=== PATIENT | female | born 2005 | race Caucasian/White ===

== ENCOUNTER 2023-10-24 18:55 | Inpatient (IN) | payer OTHER ==
[2023-10-24 20:12] VITALS: BMI 30.4
[2023-10-24 20:13] LABS: BASO % 0.3 % (0-2.0); HEMOGLOBIN 11.2 GM/dL (10.7-15.3); LYMPH % 16.8 % (8-40); MCH 32.1 pg (25.7-33.7); MCHC 34.9 g/dl (32.0-36.0); MEAN PLT VOLUME 8.2 fl (7.5-11.1); MONO % 7.1 % (3.8-10.2); NEUT % 74.8 % (42.8-82.8); PLATELET COUNT 220 10^3/uL (134-434); RBC 3.48 M/mm3 (3.60-5.2); RDW 14.5 % (11.6-15.6); WHITE BLOOD COUNT 10.9 K/mm3 (4.0-10.0)
[2023-10-24 20:21] LABS: INR 0.85 (0.83-1.09); PROTHROMBIN TIME (PATIENT) 9.6 SEC (9.7-13.0)
[2023-10-24 20:24] LABS: ACTIVATED PTT 27.6 SECONDS (25.2-36.5)
[2023-10-24 20:32] LABS: CALCIUM 8.6 mg/dL (8.5-10.1)
[2023-10-24 20:33] LABS: BLOOD UREA NITROGEN 11.5 mg/dL (7-18)
[2023-10-24 20:36] LABS: CREATININE 0.5 mg/dL (0.55-1.3)
[2023-10-24] MEDS: DINOPROSTONE 10 MG VAGINAL SUPPOSITORY VG ONE (20:50)
[2023-10-24] MEDS: ELECTROLYTE-148 SOLN 1,000 ML IV SCH (21:30)
[2023-10-24] MEDS: CITRIC ACID/SODIUM CITRATE 30 ML UNIT-DOSE CUP PO ONE (22:15)
[2023-10-24] MEDS ORDERED: ZOLPIDEM TARTRATE 5 MG TABLET ONE (23:48)
[2023-10-24] MEDS: ZOLPIDEM TARTRATE 5 MG TABLET PO ONE (23:50)
[2023-10-25] MEDS: ELECTROLYTE-148 SOLN 1,000 ML IV SCH
[2023-10-25] MEDS ORDERED: BUTORPHANOL TARTRATE 1 MG/ML VIAL ONE ×2 (03:45→15:51)
[2023-10-25] MEDS ORDERED: PROMETHAZINE HCL 25 MG/1 ML VIAL ONE ×2 (03:46→15:51)
[2023-10-25] MEDS: BUTORPHANOL TARTRATE 1 MG/ML VIAL IVPB ONE (03:50)
[2023-10-25] MEDS: PROMETHAZINE HCL 25 MG/1 ML VIAL IVPB ONE (03:50)
[2023-10-25] MEDS: DINOPROSTONE 10 MG VAGINAL SUPPOSITORY VG ONE (07:02)
[2023-10-25 07:57] LABS: HEPATITIS B SURFACE AG MATERN NON-REACTIVE (NONREACTIVE)
[2023-10-25 08:24] LABS: HIV INTERPRETATION NEGATIVE (NEGATIVE)
[2023-10-25] MEDS ORDERED: ZOLPIDEM TARTRATE 5 MG TABLET ONE (22:59)
[2023-10-25] MEDS: ZOLPIDEM TARTRATE 5 MG TABLET PO PRN (23:00)
[2023-10-26] MEDS ORDERED: OXYTOCIN 30 UNITS in 0.9% NS 30 UNIT/500 ML INFUS.BAG IVPB ONE (03:34)
[2023-10-26] MEDS: OXYTOCIN 30 UNITS in 0.9% NS 30 UNIT/500 ML INFUS.BAG IVPB SCH (04:00)
[2023-10-26 06:47] VITALS: RESP 18
[2023-10-26] MEDS ORDERED: BUTORPHANOL TARTRATE 2 MG/ML VIAL ONE (09:08)
[2023-10-26] MEDS ORDERED: PROMETHAZINE HCL 25 MG/1 ML VIAL ONE (09:08)
[2023-10-26] MEDS: PROMETHAZINE HCL 25 MG/1 ML VIAL IVPB ONE (09:45)
[2023-10-26] MEDS: BUTORPHANOL TARTRATE 1 MG/ML VIAL IVPB ONE (09:45)
[2023-10-26] MEDS ORDERED: FENTANYL/BUPIVACAINE/NS/PF - PCEA - 50 ML DISP.SYRIN EP ONE (12:05)
[2023-10-26] MEDS ORDERED: NALOXONE HCL 0.4 MG/ML VIAL IVPUSH PRN (12:06)
[2023-10-26] MEDS: FENTANYL/BUPIVACAINE/NS/PF - PCEA - 50 ML DISP.SYRIN EP SCH (12:30)
[2023-10-26] MEDS ORDERED: OXYTOCIN 20 UNITS in 0.9% NS 20 UNIT/1,000 ML INFUS.BAG IV ONE (15:31)
[2023-10-26] MEDS: OXYTOCIN 20 UNITS in 0.9% NS 20 UNIT/1,000 ML INFUS.BAG IV SCH (17:10)
[2023-10-26] MEDS ORDERED: MISOPROSTOL 200 MCG TABLET ONE (17:12)
[2023-10-26] MEDS: MISOPROSTOL 200 MCG TABLET PO SCH (17:15)
[2023-10-26] MEDS: CARBOPROST TROMETHAMINE 250 MCG/ML AMPUL IM ONE (17:23)
[2023-10-26] MEDS ORDERED: SIMETHICONE 80 MG TAB.CHEW (FP) PO PRN (18:45)
[2023-10-26] MEDS ORDERED: IBUPROFEN 600 MG TABLET (FP) PO ONE (19:00)
[2023-10-26] MEDS: IBUPROFEN 600 MG TABLET (FP) PO PRN (19:02)
[2023-10-26] MEDS: MISOPROSTOL 200 MCG TABLET PO ONE (22:33)
[2023-10-27 06:56] LABS: BASO % 0.2 % (0-2.0); EOS % 0.9 % (0-4.5); HEMATOCRIT 26.6 % (32.4-45.2); LYMPH % 14.2 % (8-40); MCH 31.6 pg (25.7-33.7); MEAN CELL VOLUME 93.1 fl (80-96); MEAN PLT VOLUME 8.3 fl (7.5-11.1); MONO % 10.3 % (3.8-10.2); NEUT % 74.4 % (42.8-82.8); PLATELET COUNT 178 10^3/uL (134-434); RBC 2.86 M/mm3 (3.60-5.2); RDW 14.4 % (11.6-15.6)
[2023-10-27] MEDS: ACETAMINOPHEN 325 MG TABLET (FP) PO PRN (07:29)
[2023-10-27] MEDS ORDERED: BISACODYL 10 MG SUPP.RECT RC PRN (18:45)
[2023-10-28] MEDS: MEASLES,MUMPS&RUBELLA VACC/PF 0.5 ML VIAL SQ ONE (08:35)
[2023-10-28 10:00] VITALS: BP 111/69; PULSE 79; TEMP 97.9
== END 2023-10-28 12:25 | disposition home or self-care (01) | DRG 560 ==
LOC: JLDR 18:55 → J3W 10-26 20:13
PROVIDERS: ADMIT Obstetrics & Gynecology; ATTEND Obstetrics & Gynecology
PROC: 10E0XZZ Delivery of Products of Conception, External Approach (ICD-10-PCS; principal; 2023-10-26)
PROC: 0HQ9XZZ Repair Perineum Skin, External Approach (ICD-10-PCS; 2023-10-26)
DX: O70.0 First degree perineal laceration during delivery (principal); Z3A.39 39 weeks gestation of pregnancy; Z37.0 Single live birth
CPT/HCPCS: 36415; 59409; 80048; 85025; 85610; 85730; 86780; 86803; 86850; 86900; 86901; 87340; 87389